=== PATIENT | male | born 1985 | race Caucasian/White ===

== ENCOUNTER 2020-05-19 15:37 | Inpatient (IN) | payer BC ==
[~2020-05-19] VITALS: Ht 182.9 cm; Wt 68.0 kg
[2020-05-19 15:37] VITALS: BP_SYST 118
--- NOTE | 2020-05-19 15:37 | NUR ---
BROUGHT IN BY [facility], PLACED IN BED #5 AND TRIAGED. REPORT GIVEN TO DEREJE
--- NOTE | 2020-05-19 15:40 | NUR ---
ER at bedside examining patient.
--- NOTE | 2020-05-19 15:45 | NUR ---
Pt came to ER with low hemoglobin and hematocrit, referred here by physician. Pt resting in gurney, no distress, compliant, VSS
[2020-05-19 16:28] LABS: BASOPHILS % (AUTO) 0.8 % (0.0-2.0); EOSINOPHILS # (AUTO) 0.3 K/uL (0.0-0.4); EOSINOPHILS % (AUTO) 5.9 % (0.0-4.0); HEMATOCRIT 22.7 % (36-54); HEMOGLOBIN 7.4 g/dL (14.0-18.0); LYMPHOCYTES # (AUTO) 2.1 K/uL (1.0-5.5); MEAN CORPUSCULAR HEMOGLOBIN 30 pg (27-31); MEAN CORPUSCULAR HGB CONC 32 % (32-36); MEAN CORPUSCULAR VOLUME 93 fL (79.0-98.0); MONOCYTES # (AUTO) 0.5 K/uL (0.0-1.0); MONOCYTES % (AUTO) 9.3 % (1.7-9.3); NEUTROPHILS # (AUTO) 2.5 K/uL (1.8-7.7); PLATELET COUNT (AUTO) 168 K/uL (130-430); RED BLOOD CELL COUNT(AUTO) 2.44 MIL/uL (4.2-6.2); RED CELL DISTRIBUTION WIDTH 14.4 % (9.0-15.0); WHITE BLOOD COUNT (AUTO) 5.5 K/uL (4.8-10.8)
[2020-05-19 16:39] LABS: CALCIUM 8.5 mg/dL (8.4-11.0); CREATININE 0.91 mg/dL (0.55-1.30); POTASSIUM 4.6 mmol/L (3.5-5.1)
[2020-05-19 16:43] LABS: PROTHROMBIN TIME 10.4 SECS (9.5-12.5)
[2020-05-19 16:45] LABS: ALBUMIN 3.4 g/dL (3.4-4.8); TOTAL BILIRUBIN 0.2 mg/dL (0.0-1.0)
[2020-05-19] MEDS ORDERED: DIPHENHYDRAMINE INJ 50 MG/ML VIAL IM PRN (17:30)
[2020-05-19] MEDS ORDERED: HALOPERIDOL LACTATE 5 MG/ML VIAL IVP PRN (17:30)
[2020-05-19 18:10] LABS: TOTAL IRON BIND. CAPACITY 234 ug/dL (250-450)
--- NOTE | 2020-05-19 19:10 | NUR ---
PT AND REPORT RECEIVED FROM JACKELYN REYEZ PT [facility] AWAITING MED SURG BED
--- NOTE | 2020-05-19 19:46 | NUR ---
ADMISSION NOTE Received patient from ER via gurney. Patient admitted with diagnosis of Acute Blood Loss/ Anemia. Patient is awake, alert, oriented X4. Patient oriented to hospital room, call light, toileting, pain management and safety-teach back done. Personal belongings checked and Belongings List documented. Call light within reach. Sitter at bedside.
[2020-05-19 20:00] VITALS: BP_SYST 92
[2020-05-19] MEDS ORDERED: PANTOPRAZOLE SODIUM 40 MG TAB PO ONE (22:00)
--- NOTE | 2020-05-19 22:41 | NUR ---
Consultation Paged Reason for Consultation: Suicidal Ideation Was consult called: Y Person who was notified: Ray Consulting Physician: Dr. Gusman (Dr. Mccain is donor floor technician) Ordering Physician: Dr. Munoz
--- NOTE | 2020-05-19 22:49 | NUR ---
BT INITIATION: Consent signed per agreeing to administration of blood. Blood has been type and crossmatched. Blood sent from blood bank. Information on unit of blood checked against patient wristband at bedside by two nurses. All information matches. Patient or responsible constitution party informed of potential complications associated with blood transfusion. Informed of possible transfusion reaction symptoms. Aware of need to notify nurse at once of itching, shortness of breath, flushing, feeling of impending doom, or other symptoms not previously present. Vital signs taken within 5 minutes prior to initiation of transfusion. RN will remain with patient for first 15 minutes of transfusion at which time vital signs will be re-assessed.
[2020-05-20 01:12] VITALS: BP_SYST 95
--- NOTE | 2020-05-20 01:30 | NUR ---
RN ROUNDS / END BLOOD TRANSFUSION: Patient is laying in bed with no s/s of distress or discomfort. Blood transfusion has ended, pt tolerated well. He has no s/s of allergic reaction or any discomfort. Will continue to monitor patient.
--- NOTE | 2020-05-20 03:00 | NUR ---
RN ROUNDS: Patient is resting in bed and appears to be asleep. He is not exhibiting any s/s of distress or discomfort. Will continue to monitor patient.
--- NOTE | 2020-05-20 03:52 | NUR ---
RN ROUNDS: Patient is laying in bed and appears to be asleep. Sitter is present in room with patient. He is not exhibiting any s/s of distress, discomfort or agitation. His room is free of clutter with bed in the lowest position and call light within reach. Will continue to monitor patient.
[2020-05-20 06:30] LABS: BASOPHILS % (AUTO) 0.9 % (0.0-2.0); EOSINOPHILS # (AUTO) 0.3 K/uL (0.0-0.4); EOSINOPHILS % (AUTO) 7.5 % (0.0-4.0); HEMATOCRIT 23.3 % (36-54); HEMOGLOBIN 7.8 g/dL (14.0-18.0); LYMPHOCYTES # (AUTO) 2.2 K/uL (1.0-5.5); LYMPHOCYTES % (AUTO) 52.5 % (20.5-51.5); MEAN CORPUSCULAR HEMOGLOBIN 30 pg (27-31); MEAN CORPUSCULAR HGB CONC 33 % (32-36); MEAN CORPUSCULAR VOLUME 89 fL (79.0-98.0); MONOCYTES # (AUTO) 0.5 K/uL (0.0-1.0); MONOCYTES % (AUTO) 10.8 % (1.7-9.3); NEUTROPHILS # (AUTO) 1.2 K/uL (1.8-7.7); NEUTROPHILS % (AUTO) 28.3 % (40.0-70.0); PLATELET COUNT (AUTO) 157 K/uL (130-430); RED BLOOD CELL COUNT(AUTO) 2.62 MIL/uL (4.2-6.2); RED CELL DISTRIBUTION WIDTH 15.7 % (9.0-15.0); WHITE BLOOD COUNT (AUTO) 4.2 K/uL (4.8-10.8)
--- NOTE | 2020-05-20 06:42 | NUR ---
CLOSING NOTES: Patient is laying in bed and appears to be asleep, sitter is at bedside. He has remained calm and free of harm throughout shift. Patient has IV on left upper arm, patent and intact. Ensured all safety precautions. Room is free of clutter. Bed is locked and in the lowest position. All needs were met throughout shift. Will endorse to dayshift nurse.
[2020-05-20 06:55] LABS: ALBUMIN 2.9 g/dL (3.4-4.8); CALCIUM 7.6 mg/dL (8.4-11.0); CREATININE 0.68 mg/dL (0.55-1.30); THYROID STIMULATING HORMONE 2.29 uIu/mL (0.36-3.74); TOTAL BILIRUBIN 0.1 mg/dL (0.0-1.0)
--- NOTE | 2020-05-20 07:59 | NUR ---
Initial notes Awake, eating breakfast. sitter at bedside. Denies any pain or shortness of breath. Per patient he still have suicidal thoughts. No acute distress noted. Will monitor.
[2020-05-20 08:07] VITALS: BP_SYST 95
[2020-05-20] MEDS: MULTIVITS,CA,MINERALS/IRON/FA 1 TABLET PO SCH ×2 (08:49→08:50)
[2020-05-20] MEDS: PANTOPRAZOLE SODIUM 40 MG TAB PO SCH (08:50)
[2020-05-20 11:37] VITALS: BP_SYST 92
--- NOTE | 2020-05-20 12:12 | NUR ---
Notes In bed, eating lunch, sitter at bedside. patient is asking if he will be discharge today, informed patient that we have to wait for the doctor. patient verbalize understanding.
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
--- NOTE | 2020-05-20 16:25 | NUR ---
Notes- Spoke to Dr. Gusman and made aware of consults and the plan for discharge back to facility and need to evaluate patient first. Per Dr. Gusman, patient can go back to the psyche facility ([place]) where he from with the [facility] and Dr. Gusman will follow up patient there.
--- NOTE | 2020-05-20 16:31 | NUR ---
MD rounds Seen by Dr. Munoz and cristian to hold discharge until seen by psychiatrist.
[2020-05-20 16:32] VITALS: BP_SYST 101
--- NOTE | 2020-05-20 18:36 | NUR ---
Notes In bed, eating dinner. denies any pain or discomfort. patient agree to go back to psyche facility at this time. Sitter at bedside. no distress noted.
--- NOTE | 2020-05-20 19:20 | NUR ---
OPENING NOTE Received SBAR report from off coming RN for continuity of care.
--- NOTE | 2020-05-20 19:25 | NUR ---
Pt resting in bed, no s/s of acute distress noted. Pt a/o x 4, pt states no needs at the time. 1:[address] and handed off to this RN for continuity of care and 1:1 sitting. Safety check and checklist completed. Will continue to monitor and assess for safety.
--- NOTE | 2020-05-20 20:00 | NUR ---
ASSESSMENT Pt a/o x 4, pt denied any pain or discomfort. Pt denies any immediate intention to end his life. VS taken, WNL. Pt cooperative with care. Pt repositioning himself. Bed locked in lowest position. Safety checks in place. Will continue to monitor, asses and provide 1:1 supervision.
[2020-05-20 20:05] VITALS: BP_SYST 93
--- NOTE | 2020-05-20 20:15 | NUR ---
PAGED DR. MARSHALL Patient requesting nicotine patch, stating he smokes a pack a day. Spoke with Dr. Marshall in regards to this. Received verbal telephone order for 21 mg Nicotine patch daily.
--- NOTE | 2020-05-20 20:30 | NUR ---
DR. JARRED Meehan at the bedside discussing plan of care.
[2020-05-20] MEDS: NICOTINE 21 MG/24 HR PATCH.TD24 TD SCH (21:11)
--- NOTE | 2020-05-20 22:30 | NUR ---
Pt in bed, restless. Pt states he is having difficulty sleeping. Pt denies any other discomfort. Bed in lowest position and locked. Will continue to provide 1:1 continuous monitoring and assess.
--- NOTE | 2020-05-20 23:08 | NUR ---
PAGED: I PAGED DR. MARSHALL I SPOKE WITH LEXX VASQUEZ
--- NOTE | 2020-05-20 23:15 | NUR ---
DR. MARSHALL Spoke with Dr. Marshall in regards to pt having difficulty sleeping. Received a verbal telephone order for Trazodone 50 mg HS to begin now.
[2020-05-20] MEDS ORDERED: traZODone HCL 50 MG TABLET (DESYREL) PO SCH (23:30)
--- NOTE | 2020-05-21 00:14 | NUR ---
Pt resting in bed. Pt attempting to go to sleep after taking Trazodone. Pt denies any other discomfort. Safety checks continue to be in place. Bed locked and in lowest position. Will continue to provide continuous 1:1 monitoring and assessment.
[2020-05-21 00:30] VITALS: BP_SYST 98
--- NOTE | 2020-05-21 02:00 | NUR ---
Pt resting in bed and asleep. Safety checks continue to be in place. Bed locked and in lowest position. Will continue to provide continuous 1:1 monitoring and assessment.
--- NOTE | 2020-05-21 03:20 | NUR ---
ANGELINE REDDY Spoke with Angeline COLEMAN from [facility] for nurse to nurse SBAR report. Angeline COLEMAN would like for this morning's lab results to be faxed to facility and a note from Dr. Munoz medically clearing pt to be discharged to facility in order to accept pt. Will endorse this to lea COLEMAN.
--- NOTE | 2020-05-21 06:30 | NUR ---
Pt resting in bed, no s/s of acute distress noted. Pt does not have any discomfort. Bed locked and in lowest position. Gave report to oncoming sitter for 1:1 monitoring, environmental safety check done. Will continue to monitor.
[2020-05-21 06:47] LABS: BASOPHILS % (AUTO) 0.9 % (0.0-2.0); EOSINOPHILS # (AUTO) 0.3 K/uL (0.0-0.4); HEMATOCRIT 26.4 % (36-54); HEMOGLOBIN 8.9 g/dL (14.0-18.0); LYMPHOCYTES # (AUTO) 1.7 K/uL (1.0-5.5); MEAN CORPUSCULAR HEMOGLOBIN 30 pg (27-31); MEAN CORPUSCULAR HGB CONC 34 % (32-36); MEAN CORPUSCULAR VOLUME 89 fL (79.0-98.0); MONOCYTES # (AUTO) 0.3 K/uL (0.0-1.0); MONOCYTES % (AUTO) 7.8 % (1.7-9.3); NEUTROPHILS % (AUTO) 45.3 % (40.0-70.0); PLATELET COUNT (AUTO) 200 K/uL (130-430); RED BLOOD CELL COUNT(AUTO) 2.95 MIL/uL (4.2-6.2); WHITE BLOOD COUNT (AUTO) 4.4 K/uL (4.8-10.8)
[2020-05-21 07:00] LABS: CALCIUM 8.3 mg/dL (8.4-11.0); CREATININE 0.67 mg/dL (0.55-1.30); POTASSIUM 3.9 mmol/L (3.5-5.1)
--- NOTE | 2020-05-21 07:17 | NUR ---
CLOSING NOTE Endorsed SBAR report to oncoming RN for continuity of care. Discussed plan of care for the day.
[2020-05-21 08:00] VITALS: BP_SYST 92
--- NOTE | 2020-05-21 08:00 | NUR ---
Note Pt resting in bed with covers over him. Pt has sitter at bedside at this time. No SOB/resp distress or pain/discomfort noted at this time. IV in AGUSTIN intact and patent at this time. Pt looks depressed at this time. No needs noted at this time.
[2020-05-21] MEDS: NICOTINE 21 MG/24 HR PATCH.TD24 TD SCH (08:32)
[2020-05-21] MEDS: MULTIVITS,CA,MINERALS/IRON/FA 1 TABLET PO SCH (08:33)
[2020-05-21] MEDS: PANTOPRAZOLE SODIUM 40 MG TAB PO SCH (08:33)
[2020-05-21] MEDS ORDERED: CITALOPRAM HYDROBROMIDE 20 MG TABLET PO SCH (09:00)
--- NOTE | 2020-05-21 10:01 | NUR ---
SS NOTES/PSYCH TRANSFER Clinicals faxed to [facility] for review. Awaiting on final discharge order from MD. Rosa MARTE notified. Addendum: 05/21/20 at 1447 by Sharifa ANDRES Information received from Kathryn with [facility]. Pt is accepted with admit of Dr. Heller. Pt is to go to [facility] for intake @ [address] [facility], [id number]. [facility] arranged for tile picker at 5PM to transport to [facility]. Packet on chart and Faith COLEMAN notified.
[2020-05-21 12:00] VITALS: BP_SYST 95
--- NOTE | 2020-05-21 12:00 | NUR ---
Note Pt awake and interacting appropriately with staff. Answers questions appropriately. VSS. No needs noted at this time. Sitter at bedside.
[2020-05-21 13:18] VITALS: BP_SYST 95
--- NOTE | 2020-05-21 14:30 | NUR ---
Note Spoke to Kathryn (from [facility]) and update and report given at this time. Pt has been accepted to the facility at this time. Pt was notified. Pt sitting on side of bed and talking to sitter. No agitation/restlessness/depression noted at this time. Right shoulder Nicotine patch on all shift. No needs noted at this time.
[2020-05-21 16:00] VITALS: BP_SYST 101
--- NOTE | 2020-05-21 16:20 | NUR ---
Note Pt's AGUSTIN IV was dc'd - site benign - no swelling/bleeding/drainage/tenderness at site noted at this time. Pt will dress in stereet clothes at bedside shortly. No SOB/resp distress or pain/discomfort/dizziness/weakness noted at this time. Pt was checked on q1' and PRN all shift for needs and care. Pt stable. Sitter at bedside all shift. Pt was maintained with safety precautions all shift.
--- NOTE | 2020-05-21 17:04 | NUR ---
Note EMT from [facility] on the floor - report given and packet for [facility] given for continuation of care. Pt dressed in street clothes. Pt had no more belongings. Pt off the floor via gurney to [facility].
--- NOTE | 2020-05-27 09:14 | NUR ---
Church History Teacher Note: DMITRY Novak faxed referral to [facility] (f:[phone]) as this patient needs housing when discharged from [facility]. Additional consents were obtained from patient at [facility] and faxed those consents back. will provide [facility] to follow up with referral. Addendum: 05/27/20 at 1519 by Polly ANDRES Church History Teacher: follow up CLARIFIER OPERATOR called [place], to let her know the complete application has been sent to [facility], contact center analyst is Ines, . CLARIFIER OPERATOR shared this info with Jazmín Regan another Case Mngr. as French was out today.
== END 2020-05-21 17:20 | DRG 812 ==
LOC: SED 15:37 → SMU 17:25
PROVIDERS: ADMIT Internal Medicine; ATTEND Internal Medicine
PROC: 30233N1 Transfusion of Nonautologous Red Blood Cells into Peripheral Vein, Percutaneous Approach (ICD-10-PCS; principal; 2020-05-19)
DX: D62 Acute posthemorrhagic anemia (principal); E44.1 Mild protein-calorie malnutrition; F15.10 Other stimulant abuse, uncomplicated; F32.9 Major depressive disorder, single episode, unspecified; X78.8XXA Intentional self-harm by other sharp object, initial encounter; F17.200 Nicotine dependence, unspecified, uncomplicated; F12.10 Cannabis abuse, uncomplicated; Z59.0 Homelessness; Z81.8 Family history of other mental and behavioral disorders; Z91.5 Personal history of self-harm; Z68.20 Body mass index [BMI] 20.0-20.9, adult; Y93.89 Activity, other specified; Y92.89 Other specified places as the place of occurrence of the external cause; Y99.8 Other external cause status
CPT/HCPCS: 36415; 36430; 80048; 80053; 83540-TC; 83550-TC; 84439; 84443-TC; 85025; 85044-TC; 85610-TC; 85730-TC; 86886; 86900; 86901; 86920; 87081; 99291; J7040; P9021